=== PATIENT | male | born 1985 | race Caucasian/White ===

== ENCOUNTER 2016-06-19 14:53 | Emergency (ER) | payer OTHER ==
[~2016-06-19] VITALS: Ht 175.3 cm; Wt 90.7 kg
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
[2016-06-19 16:55] VITALS: BP 119/57
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
[2016-06-19] MEDS ORDERED: TRAMADOL HCL50 M1 PO (17:23)
[2016-06-19] MEDS ORDERED: CYCLOBENZAPRINE5 M2 PO (17:23)
== END 2016-06-19 17:32 ==
LOC: ERH 14:53
DX: S39.012A Strain of muscle, fascia and tendon of lower back, initial encounter (principal); Y04.8XXA Assault by other bodily force, initial encounter
CPT/HCPCS: 72100; 81003